=== PATIENT | male | born 1955 | race Caucasian/White ===

== ENCOUNTER → 2016-11-10 | Outpatient (CLI) | payer BC ==
[~2016-11-10] MED LIST: MULT-506 PO; NUTR750C PO; OMEG10007 PO
--- NOTE | 2016-11-10 16:31 | DIAGNOSTIC IMAGING REPORT ---
RIGHT KNEE 2 VIEWS HISTORY: RIGHT KNEE PAIN Right COMPARISON: None. FINDINGS: There is no fracture or dislocation. Small knee effusion. Calcification/ossification at the distal quadriceps tendon is likely chronic. Mild cartilage space narrowing within the medial compartment of the right knee with tiny marginal osteophytes. This is consistent with mild degenerative change. No radiopaque foreign bodies. IMPRESSION: No fractures. Mild osteoarthritis. Small knee effusion. Electronically signed by: Armond Jeronimo M.D. 11/10/2016 4:29 PM Dictated Date/Time: 11/10/2016 4:28 PM
== END | disposition home or self-care (01) ==
LOC: C.RAD1850 16:06
PROVIDERS: ATTEND Family Medicine
DX: M25.569 Pain in unspecified knee (principal); M25.461 Effusion, right knee